=== PATIENT | male | born 1995 | race Caucasian/White ===

== ENCOUNTER 2020-08-07 12:32 | Day surgery (SDC) | payer OTHER, SELFPAY ==
[2020-08-05 16:11] VITALS: BMI 20.7
--- NOTE | 2020-08-06 22:19 | HP.PCM_ITS ---
History and Physical Date of Admission: 08/07/20 HISTORY OF PRESENT ILLNESS 25 year old man presents with a traumatic complex laceration left cheek with a residual hematoma that he sustained at work on 07/24/20 when a piece of glass broke and hit him on the left cheek. He went to [place] ED where the laceration was repaired. Some coagulated blood was removed at the time of the repair. He was discharged on antibiotics. He was seen in followup at [facility] on 07/31/20 and a persistent hematoma bulge was present. Since the injury he has returned to work and is doing ok. He denies fever. He has noticed when he smiles, there is some asymmetry on the left. It was noted in the ED note and the subsequent followup note that the facial nerve motor function was intact. He presents today for further evaluation and treatment. PAST MEDICAL HISTORY Contact with sharp glass causing accidental injury Work related injury Laceration of muscle of face Cheek injury Laceration of left cheek with complication Injury of facial nerve, left side, initial encounter Open wound of left cheek with complication Laceration of cheek with complication Asthma Back problem Frequent headaches PAST SURGICAL HISTORY No history of previous surgery ALLERGIES No Known Allergies MEDICATIONS acetaminophen Keflex FAMILY HISTORY Other - Alcoholism /alcohol abuse, Anxiety, Cancer, Depression, Diabetes, Heart disease, Hypertension SOCIAL HISTORY Smoking Status: Never smoker alcohol intake: never substance use type: does not use REVIEW OF SYSTEMS General - Denies fever and weight loss. Has fatigue. Eyes - Denies cataracts and glaucoma. ENT - Denies nasal congestion and sore throat. Endocrine - Denies excessive thirst and urination. Skin - Denies suspicious lesions and skin cancer. Musculoskeletal - Denies joint pain, joint stiffness, weakness of muscles and joints, and arthritis. Has back pain. Neuro - Has headaches. Cardiovascular - Denies chest pain, fatigue, and shortness of breath with exertion. Psych - Denies anxiety and depression. Respiratory - Denies chronic cough and shortness of breath. Has asthma. Gastrointestinal - Denies nausea, vomiting, diarrhea, and constipation. Hematologic - Denies abnormal bruising and bleeding. Genitourinary - Denies hematuria and urinary frequency. PHYSICAL EXAMINATION General - Alert and Oriented. HEENT - PERRL. EOMI. Throat is clear. On the left cheek is a sutured lacerati on measuring 7 cm. It travels obliquely from the helical root of the ear superiorly and inferomedially onto the cheek. Lateral to the sutured laceration is some bulging probably from residual hematoma (as described from the ED note). The hematoma measures 6 x 3.5 cm. Overlying skin is viable. He is able to elevate his eyebrows. He can close his eyes. He can grimace. There is some mild asymmetry with smiling on the left. Neck - Supple and nontender. No cervical adenopathy. Lungs - Clear to auscultation. Heart - Regular rate and rhythm. Abdomen - Soft and nondistended. Extremities - FROM. No axillary adenopathy. Radial pulses are palpable. Neuro - CN II-XII grossly intact except for some mild asymmetry with smiling on the left side suggesting branch of facial nerve injury. Psych - Normal mood and affect. ASSESSMENT 1. 7 cm traumatic complex laceration left cheek from a piece of glass, suture repaired. 2. Residual hematoma left cheek suggesting muscle injury. 3. Mild asymmetry with smiling left upper lip suggesting branch of facial nerve injury. 4. Possible injury to parotid gland and duct. 5. Contact with sharp glass causing accidental injury. 6. Work related injury. PLAN Patient has residual hematoma that needs surgical drainage to minimize infection. The initial injury was 2 weeks ago. The skin edges may need debridement because of swelling to allow a stronger secondary wound closure. Placement of a drain may be necessary. Initially he was treated with Keflex. Will start him on Clindamycin. A script was sent to his Pharmacy. Will send tissue to Pathology for analysis and to Microbiology for culture. A positive culture will necessitate antibiotic therapy. Will schedule the surgery in the next 1-2 days under general anesthesia. Besides residual blood present, there may also be some salivary drainage present as well suggesting an injury to the parotid duct. With the mild asymmetry present on the left with smiling suggests a possible branch of facial nerve injury. The parotid duct is located nearby as well. At the time of the drainage of the hematoma to minimize infection, I will look at the parotid gland and facial musculature. Injury to these structures would be suspicious of facial nerve involvement and parotid duct involvement. At that point, he would need to be evaluated at a tertiary center for exploration of the facial nerve and parotid duct with microscopic repair of any injured structures. If injury is present, there may be some nerve retraction which may necessitate a nerve graft for repair. Patient was informed of the risks and complications of the procedure including alternatives to surgery. These were discussed with the patient personally. Patient voices understanding and wishes to proceed. Some of the risks and complications were included in a form from the [employer]. Patient is aware that further damage to deeper structures may be present and additional surgeries may be necessary at a tertiary center. He voices understanding and wishes to proceed. After surgery when he returns to work, there will be a 20 lb lifting restriction during the healing process. We discussed the current risks associated with COVID-19. While it is understood that there is a community spread of COVID-19, the risk of lydia COVID-19 while at [facility] ([facility]) is very low; however, the risk cannot be completely mitigated because of the community spread of the disease. We discussed in detail the risk of exposure to and/or potential harm posed by the COVID-19 virus with having a surgery/procedure at this time versus the risk of delaying the surgery/procedure. It is not possible to know either the risk of delaying the surgery or procedure or chance of getting an infection with perfect accuracy, but a joint decision was made to proceed at this time with the scheduled surgery/procedure as indicated on the consent form. Patient was notified that we will need to comply with any screening or testing [facility] wishes to perform or that surgery may be delayed for any positive results. Discussed with the patient that I was tested for COVID-19 on 04/30/20 which was negative and on 05/14/20 which was negative and on 05/28/20 which was negative and on 06/11/20 which was negative and on 06/25/20 which was negative and on 07/16/20 which was negative. My testing regimen at this time is to be COVID-19 tested every 2 weeks or so. I was recently tested on 08/06/20 and that test is pending. Procedure Criteria Procedure Type: Elective COVID Risk Discussion: The surgeon/proceduralist and patient have discussed in detail the risk of exposure to and/or potential harm posed by the COVID-19 virus with having a surgery/procedure at this time versus the risk of delaying the surgery/procedure. It is not possible to know either the risk of delaying the surgery or procedure or chance of getting an infection with perfect accuracy, but a joint decision was made between the patient and the surgeon/proceduralist to proceed at this time with the scheduled surgery/procedure as indicated on the consent form.
[2020-08-07] VITALS (7 sets, daily range): BP systolic 115–141; BP diastolic 54–81; PULSE 71–100; RESP 14–16; TEMP 36.6–37.3; O2SAT 99–100; BMI 21.5
--- NOTE | 2020-08-07 | THRO_PTH ---
PATIENT: MARCELINO BERNARD LOC: [facility] – [place] U#:[id number] AGE/SX: 25/M ROOM: RE08/07/[address]: Dr. Jorge A Zuñiga MD : 1995 BED: DIS: 08/07/2020 SPEC #: [id number] RECD: 08/10/20 07:31 STATUS: NAHOMI EMILEE #: [id number] VIDA: 08/07/20 00:[address]: Jorge A Zuñiga DEPT: SURGICAL PATHOLOGY RECD BY: Riley Murillo Tissues: BLOOD CLOT, NOS Procedures: Surgery Specimen Level IV HEADER OPERATION: Surgical preparation cheek with I & D, evacuation and incision PRE-OP DIAGNOSIS: 7 cm traumatic complex laceration left cheek from piece of glass, suture repaired TISSUE SUBMITTED: Residual hematoma left cheek MICROSCOPIC DIAGNOSIS Skin and soft tissue of left cheek, excision: Consistent with organizing hematoma with associated reactive change. AM:roslyn 08/11/20 MICROSCOPIC DESCRIPTION Slides are reviewed. GROSS DESCRIPTION Received in fixative is one container labeled with the patient's name and designated residual hematoma left cheek. The specimen consists of two strips of fine-white skin measuring 4 x 0.2 x 0.5 cm and 6.5 x 0.2 x 0.5 cm. Also present in the container are two fragments of blood clot measuring in aggregate 4 x 3 x 1 cm. Animal Ecologist sections are submitted in one cassette. / SJ:roslyn 08/10/20 TC:5 CPT: 99145
[2020-08-07] MEDS: Lactated Ringers 1,000 ML 100 ML IV (13:10)
[2020-08-07] MEDS: Mupirocin Ointment 22gm Tube 1 APPLIC (16:56)
--- NOTE | 2020-08-07 17:48 | PCM.OPRPT ---
Report of Operation Date of Procedure: 08/07/20 Pre-Operative Diagnosis: 1. 7 cm traumatic complex laceration left cheek from a piece of glass, suture repaired. 2. Residual hematoma left cheek suggesting muscle injury. 3. Mild asymmetry with smiling left upper lip suggesting branch of facial nerve injury. 4. Possible injury to parotid gland and duct. 5. Contact with sharp glass causing accidental injury. 6. Work related injury. Post-Operative Diagnosis: Same. Surgery/Procedure Performed:: Surgical preparation left cheek with incision and drainage and evacuation and excisional debridement traumatic hematoma with 7.5 cm complex secondary wound closure. Description of Surgical Findings:: 25 year old man presents with a traumatic complex laceration left cheek with a residual hematoma that he sustained at work on 07/24/20 when a piece of glass broke and hit him on the left cheek. He went to [place] ED where the laceration was repaired. Some coagulated blood was removed at the time of the repair. He was discharged on antibiotics. He was seen in followup at [facility] on 07/31/20 and a persistent hematoma bulge was present. Since the injury he has returned to work and is doing ok. He denies fever. He has noticed when he smiles, there is some asymmetry on the left. It was noted in the ED note and the subsequent followup note that the facial nerve motor function was intact. Patient was informed of the risks and complications of the procedure including alternatives to surgery. These were discussed with the patient personally. Patient voices understanding and wishes to proceed. Some of the risks and complications were included in a form from the [employer]. Today in the preoperative area, it was noted that the hematoma appeared a little smaller and softer. Patient also had better symmetry with smiling. Hopefully the asymmetry is due to bruising from external swelling. I used Delonte absorbable hemostat. [id number]. Lot Number - [id number]. Expiration - February 24, 2025. tyre builder: None Type of Anesthesia:: General Specimen's removed: Left cheek hematoma tissue to Pathology and Microbiology. Drains: Rudy. Estimated Blood Loss (mL): 150 ml. Description of Procedure: Patient was taken to OR in supine position and was placed under general anesthesia. The left face was prepped and draped in the usual fashion. SCD's were placed for DVT prophylaxis. Perioperative antibiotics were given intravenously. For the procedure, I wore an N95 mask and wore proper eyewear protection. Using xylocaine with epinephrine, the laceration was infiltrated for postoperative pain relief. After waiting 5 minutes for the anesthetic to take effect, I removed the sutures that were placed in the ED 2 weeks ago. A hematoma was seen that was evacuated. Several areas of oozing were seen and were controlled with electrocautery. It was a tangential trajectory of the glass downward as there was a tangential injury to the parotid gland. I could not appreciate any nerve ends at the base of the wound. At the base of the wound I saw what appeared to be a part of the parotid duct. I cannulated the duct opening intraorally and injected some saline. No saline was seen in the base of the wound suggesting the duct is intact. Since the patient's mild asymmetry when smiling showed improvement today in the preop area, I'm hopeful that it will continue to improve. At this late stage (2 weeks since the injury) I don't want to start dissecting out different structures just to visualize the facial nerve since it would increase scar tissue in the area. If an injury were present, clinical improvement would not be noted. And since this is a 2 week old injury, if an injury were present, some nerve retraction may be present in which case a nerve graft would be needed. That would be best done at a tertiary center with the use of a microscope. So will continue to closely observe his clinical presentation and decide in the future if evaluation is needed at a tertiary center if clinical presentation stops improving. A size 15 Rudy drain was placed in the base of the wound through a separate stab incision laterally at the superior helical rim area of the ear and secured to the skin with 3-0 Nylon suture. Once again hemostasis was obtained with electrocautery. The wound was irrigated with saline. I then sprayed Delonte absorbable hemostat into the wound to minimize seroma formation. The skin edges appear swollen so I freshened the edges back to less swollen tissue with excision of the skin edges. The tissue and the hematoma was sent to Pathology for analysis and to Microbiology for culture. A positive culture will necessitate antibiotic therapy. The wound was closed in a complex multiple layered fashion with 5-0 Monocryl interrupted sutures for the underlying SMAS layer. The deep dermis and subcutaneous tissue was approximated with 5-0 Monocryl interrupted sutures. The skin was approximated with 5-0 Prolene simple interrupted and vertical mattress interrupted sutures. Antibiotic ointment was applied to the suture line followed by Kerlix gauze wrapped around his face followed by compression eloina wrap. The length of the complex secondary wound closure was 7.5 cm. Patient tolerated the procedure well and was sent to PACU in satisfactory condition. Patient will be sent home on antibiotics and pain medication. He will keep his head elevated during the initial postoperative period. Patient will followup in a week for a wound check and for discussion of the pathology report and for discussion of the microbiology report. A positive culture will necessitate antibiotic therapy. Will also remove of the sutures at that time. The drain will be removed in 1-2 weeks. Grafts/Implants Used: Dleonte - Complications None. - Admit VTE Documentation VTE Present on Admission: No VTE Mechan Device Prophylaxis: SCD's VTE Pharm Prophylaxis ordered?: No Surgery Charges CPT - 96202 ICD-10 - S01.419A, S01.412A, S01.402A, S09.93xA, S04.52xA, Y99.0, W25.xxxA 08686 S01.419A, S01.412A, S01.402A, S09.93xA, S04.52xA, Y99.0, W25.xxxA
--- NOTE | 2020-08-07 17:56 | PCM.DC ---
You will use the following diet at home:: No restrictions Discharge Activity: May not drive while taking narcotic pain medications., May Shower - from the neck down and wash face gently in the sink in two days., - - keep head elevated. no heavy lifting. May shower in (days): 2 - from the neck down only. May resume sexual activity in: 10-14 days Ice area for (Minutes): 5 - as needed for facial swelling. Weight Bearing Status: Weight bearing as tolerated Lifting Restrictions: 10 lbs. Keep extremity elevated above heart level: - - elevate head. Call your doctor if your incision/area has: Continuous Slow Oozing, Sudden Increased Bleeding, Increased Pain/ Swelling, Increased Redness, Foul Smelling Discharge, Swelling at the incision site Call your doctor if you observe: Fever of 101 or Higher, Coldness, Increased Pain, Shortness of breath, Chest pain, Calf discomfort, Uncontrolled pain Suture Line Care: - - apply antibiotic ointment to the suture line daily after the operative dressing is changed in two days. Change Dressing in (Days):: 2 - followed by antibiotic ointment, 4x4 gauze and an eloina wrap. Cleanse incision/area with: - - may shower from the neck down in two dasy and wash face gently in the sink. Drain: Suction - guerda drain to bulb suction. empty and record output daily. Additional Instructions: Patient will be off work until the drain is removed. Allergies/Adverse Reactions: Allergies No Known Allergies Allergy (Verified 08/06/20 15:39) Medications to take at Discharge acetaminophen 500 mg tablet 1,000 mg PO Q6H PRN tab 08/05/20 Clindamycin HCl [Cleocin] 300 mg PO TID #30 cap 08/07/20 Oxycodone [Oxyir] 5 mg PO Q4H PRN PRN 7 Days #40 tab 08/07/20 The following prescriptions were given: Clindamycin HCl [Cleocin] 300 mg PO TID #30 cap Transmission Status: Sent to [facility] Oxycodone [Oxyir] 5 mg PO Q4H PRN PRN 7 Days #40 tab PRN Reason: Pain Score 6-10 Transmission Status: Sent to [facility] Test Results: Test results from this visit will be discussed in further detail at your follow-up appointment, if applicable. Please Follow Up With: Jorge A Zuñiga MD When: monday08/11/20. call [phone] for appt. Proposed Discharge Date: 08/07/20
== END 2020-08-07 19:30 | disposition home or self-care (01) ==
LOC: SDC 12:33 → AC 12:34
PROVIDERS: Referring Provider Surgery; Visit Provider Surgery
PROC: (CPT 13160; principal; 2020-08-07 13:35)
DX: S01.412S Laceration without foreign body of left cheek and temporomandibular area, sequela (principal); S00.83XS Contusion of other part of head, sequela; J45.909 Unspecified asthma, uncomplicated; Y99.0 Civilian activity done for income or pay; W25.XXXS Contact with sharp glass, sequela; W45.8XXS Other foreign body or object entering through skin, sequela
CPT/HCPCS: 00300; 13160; 15004; 87070; 87075; 87077; 87102; 87186; 87205; 87206; 88304; 88305; J7120; J2405